=== PATIENT | female | born 1970 | race Caucasian/White ===

== ENCOUNTER → 2017-08-04 | Outpatient (CLI) | payer OTHER ==
[~2017-08-04] MED LIST: CITALOPRAM HBR40 MG PO; NORCO 5/3251 TABLET PO; OMEPRAZOLE40 M1 PO
== END | disposition home or self-care (01) ==
LOC: CT 16:16
DX: R10.813 Right lower quadrant abdominal tenderness (principal)
CPT/HCPCS: 74177